=== PATIENT | male | born 1980 | race Caucasian/White ===

== ENCOUNTER 2024-04-09 14:57 | Emergency (ER) | payer OTHER ==
[2024-04-09] MEDS: Lidocaine 1% 5 ML VIAL INJECT ONE ×2 (16:04→16:43)
[2024-04-09] MEDS: traMADol 50 MG Tab PO ONE (16:36)
[2024-04-09] MEDS: Acetaminophen 500 MG Tab PO ONE (16:37)
[2024-04-09] MEDS: Ketorolac 30 MG/ML SDV IM ONE (16:38)
[2024-04-09] MEDS: Bacitracin/Neomycin/Polymyxin B Oint 0.9 GM U/D Packet TOP ONE (16:43)
== END 2024-04-09 17:05 | disposition home or self-care (01) ==
LOC: LL.ED 14:57
DX: S61.411A Laceration without foreign body of right hand, initial encounter (principal); S61.210A Laceration without foreign body of right index finger without damage to nail, initial encounter; S61.230A Puncture wound without foreign body of right index finger without damage to nail, initial encounter; S61.431A Puncture wound without foreign body of right hand, initial encounter; W54.0XXA Bitten by dog, initial encounter; Z79.82 Long term (current) use of aspirin; Z79.899 Other long term (current) drug therapy; Z88.0 Allergy status to penicillin; Z88.1 Allergy status to other antibiotic agents
CPT/HCPCS: 12002; 73120-RT; 96372; 99283; A9270-GY; J1885; J3490

== ENCOUNTER 2024-06-07 16:18 | Emergency (ER) | payer OTHER ==
[2024-06-07] MEDS ORDERED: Sodium Chloride 0.9% 10 ML Syringe FLUSH PRN (16:35)
[2024-06-07 16:42] LABS: BASOPHILS ABSOLUTE AUTO 0.02 K/uL (0.00-0.20); BASOPHILS PERCENT AUTO 0.3 % (0.0-2.0); EOSINOPHILS ABSOLUTE AUTO 0.11 K/uL (0.00-0.50); EOSINOPHILS PERCENT AUTO 1.7 % (0.0-5.0); HEMATOCRIT 48.7 % (39.0-49.0); HEMOGLOBIN 17.1 g/dL (13.1-16.8); IMMATURE GRAN ABSOLUTE AUTO 0.01 10^3/uL (0.00-0.50); IMMATURE GRAN PERCENT AUTO 0.2 % (0.0-5.0); LYMPHOCYTES ABSOLUTE AUTO 2.83 K/uL (0.50-3.50); LYMPHOCYTES PERCENT AUTO 42.8 % (10.0-50.0); MEAN CORPUSCULAR HEMOGLOBIN 30.1 pg (28.2-33.3); MEAN CORPUSCULAR HGB CONC 35.1 g/dL (31.7-36.0); MEAN CORPUSCULAR VOLUME 85.6 fL (84.0-98.0); MONOCYTES ABSOLUTE AUTO 0.62 K/uL (0.00-1.00); MONOCYTES PERCENT AUTO 9.4 % (2.0-14.0); NEUTROPHILS ABSOLUTE AUTO 3.02 K/uL (1.40-7.00); NEUTROPHILS PERCENT AUTO 45.6 % (45.0-80.0); PLATELET COUNT,PLT 265 K/uL (150-350); RED BLOOD CELL COUNT 5.69 M/uL (4.33-5.41); WHITE BLOOD CELL COUNT,WBC 6.6 K/uL (4.0-10.2)
[2024-06-07 17:02] LABS: PROTHROMBIN TIME 10.4 SEC (9.0-11.1); PTT,PARTIAL THROMBOPLSTIN TIME 24.6 SEC (23.6-29.8)
[2024-06-07 17:05] LABS: ANION GAP 10.3 meq/L (7-15); BILIRUBIN TOTAL 1.5 mg/dL (0.2-1.0); CALCIUM 8.8 mg/dL (8.5-10.1); CARBON DIOXIDE,CO2 24.7 mmol/L (21.0-32.0); CREATININE 1.14 mg/dL (0.51-1.17); EST CRCL DRUG DOSING (CG) 93.45 mL/min; POTASSIUM,K 4.1 mmol/L (3.5-5.1); PROTEIN TOTAL,TP 7.7 g/dL (6.4-8.2)
[2024-06-07] MEDS ORDERED: Iopamidol 755 Mg/ML 100 ML Bottle ONE (17:38)
[2024-06-07] MEDS: Ticagrelor 90 MG Tab PO SCH (17:58)
[2024-06-07] MEDS: cloNIDine 0.1 MG Tab PO ONE (18:14)
[2024-06-07] MEDS: Clopidogrel 75 MG Tab PO ONE (18:14)
[2024-06-07] MEDS: LORazepam 0.5 MG Tab PO ONE (18:52)
[2024-06-07] MEDS: Metoprolol Tartrate 25 MG Tab PO ONE (18:52)
== END 2024-06-07 19:49 | disposition home or self-care (01) ==
LOC: SUPCPDRO 16:18 → LL.ED 16:18
DX: G45.9 Transient cerebral ischemic attack, unspecified (principal); I10 Essential (primary) hypertension; E78.00 Pure hypercholesterolemia, unspecified; F17.210 Nicotine dependence, cigarettes, uncomplicated; Z79.899 Other long term (current) drug therapy; Z79.82 Long term (current) use of aspirin; Z88.0 Allergy status to penicillin; Z88.8 Allergy status to other drugs, medicaments and biological substances
CPT/HCPCS: 36415; 70450; 70496; 70498; 80053; 84484; 85025; 85610; 85730; 93005; 99284; A9270-GY; Q9967